=== PATIENT | male | born 1995 | race Caucasian/White ===

== ENCOUNTER 2020-01-24 10:41 | Day surgery (SDC) | payer BC, OTHER ==
[~2020-01-24] VITALS: Ht 177.8 cm; Wt 81.6 kg
[2020-01-24 11:43] VITALS: BP 103/78; Ht 177.8 cm; Wt 81.6 kg
--- NOTE | 2020-01-24 16:39 | NUR ---
IV D/C'D WITH CANNULA INTACT. DISCHARGE INSTRUCTIONS GIVEN. PT AND VERBALIZED AN UNDERSTANDING. DRSG UNCHANGED. RATES PAIN 0 SLING AND WAIST BWELT IN PLACE.
--- NOTE | 2020-01-27 08:19 | OP ---
PATIENT NAME: EDGAR DENSON MEDICAL RECORD: [id number] :93 LOCATION:[facility] ADMISSION DATE: SURGEON: LIOR CLOUD DO DATE OF OPERATION: 01/24/2020 PROCEDURE PERFORMED: Left shoulder arthroscopy with biceps tenodesis, labral debridement, rotator cuff repair, subacromial decompression, and distal clavicle excision. PREOPERATIVE DIAGNOSES: Left shoulder acromioclavicular joint arthritis, subacromial impingement, and superior labrum anterior and posterior tear. POSTOPERATIVE DIAGNOSES: Left shoulder acromioclavicular joint arthritis, subacromial impingement, superior labrum anterior and posterior tear, partial supraspinatus tear, and [place] complex. INDICATIONS: Mr. Denson is a 24-year-old male who has had left shoulder pain for quite some time. He noticed that he was not able to do the weights that he was normally doing as he was lifting quite heavy, but he noticed that shoulders are hurting him a lot. He had an MRI, which showed the SLAP tear. It was a non-arthrogram, but it did show a SLAP tear. He was tired of dealing with the pain and got to a point where we tried an injection and it did not help. He wanted to do something surgically as it was hurting him bad and he was tired of dealing with it. I informed him of the risks including infection, bleeding, biceps deformity, amelia deformity, continued pain, adhesive capsulitis, blood clots, failure of implants, and even and he signed the consent. SURGEON: Lior Cloud DO DESCRIPTION OF PROCEDURE: The patient given block by anesthesia in the preoperative area. He was taken to the operative suite, laid in the right lateral decubitus position, given 900 mg clindamycin. He was sedated and LMA was placed. The left shoulder was then prepped and draped in sterile fashion. Timeout was performed. Everyone was in agreement of the correct side, site, patient and procedure. We then began by infiltrating the joint with 60 cc normal saline through a posterior portal with an 18-gauge spinal needle and then established a portal with an 11-blade scalpel and entered into the joint with the trocar. The anterior portal was then established with an 18-guaze spine needle and 11-blade scalpel. I then inspected the shoulder. The cartilage looked good. There is nothing in the inferior gutter; however, did have a classic [place] complex where the superior labrum took off to the middle glenohumeral ligament and he indeed did have a SLAP tear type 2. The subscapularis was in good repair and upon inspecting the supraspinatus at the posterior aspect of it even may be into the infraspinatus a little bit, there was approximately 50% tear in the articular side of the tendon. I then brought in a burner and did a biceps tenotomy and labral debridement and then brought in a shaver and debrided the tendon, the rotator cuff tendon. The supraspinatus, infraspinatus at that spot debrided back to the torn tendon and indeed was torn significantly. Due to his physical activity level and knowing that leaving a partially torn was probably not a good idea, I called his during the surgery and again consent through that to fix it. Informed her that for his change in rehabilitation and that it would be significantly different. She was okay with that and I then went to the subacromial space and did establish lateral portal with an 18-gauge spinal needle and 11-blade scalpel and then did a subacromial decompression and removed part of the distal acromion and through OPERATIVE REPORT [id number] EDGAR DENSON the anterior portal did a distal clavicle excision, opening up the AC joint to approximately 7 mm. I then removed the bursa on the rotator cuff, did not see a bursal-sided tear and went back into the joint and marked the articular-sided tear with an 18-gauge spinal needle through the lateral portal. I then removed the scope and extended the lateral portal to do a mini open, opened up and carefully dissected down bluntly with [place] to the tear. It was marked, put a large Regeneten patch on it, stabled it medially and then with the soft tissue stapling laterally with 3 bone raul. I then went to the anterior humerus and careful dissection down to the long head of the biceps tendon, pulled out through it, the incision and put a unicortical hole into the humerus and put the 2.9 bicep fixation. A JuggerKnot stitch with a loop on it into the humerus and then looped the long head of the biceps tendon through that loop, cinched it down to the humerus and then cut the loop and took a free needle with the sutures and went back through the tendon distally up to proximally twice and then tied that down, securing it doubly. I then cut the excess suture and excess tendon. I then irrigated all of the sites and they were then closed by Adarsh Chan, certified veterinary technician, and Juana Farr, surgical consultant student, they closed the biceps and the rotator cuff repair site with 2-0 Vicryl in interrupted fashion, 4-0 Monocryl ran on the skin and 2 portal sites anterior and posterior with 4-0 Monocryl inverted interrupted fashion. He was then put Dermabond on all sites and dressed with Telfa and Tegaderm, put in a sling, awakened and taken to recovery in stable condition. BLOOD LOSS: Minimal. COMPLICATION: None. TRANSINT:[id number] Voice Confirmation ID: [id number] DOCUMENT ID: [id number] LIOR CLOUD DO at 0819 CC: [id number] DICTATION DATE: 01/24/20 1455 [facility] SPECIALIST: 01/25/20 0339 [facility] 01/24/[address] [facility] [address] [place] [address]
== END 2020-01-24 16:37 | disposition home or self-care (01) ==
LOC: D.OPS 10:41 → D.PAN 11:30 → D.OPS 12:00
PROVIDERS: ATTEND Orthopaedic Surgery
DX: M25.812 Other specified joint disorders, left shoulder (principal); M19.012 Primary osteoarthritis, left shoulder; S43.432A Superior glenoid labrum lesion of left shoulder, initial encounter; X58.XXXA Exposure to other specified factors, initial encounter